=== PATIENT | male | born 1940 | race Caucasian/White ===

== ENCOUNTER → 2016-10-04 | Outpatient (REF) | payer MEDICARE, OTHER, BC ==
[2016-10-04 12:08] LABS: CALCIUM LEVEL 9.5 MG/DL (8.8-10.2); CREATININE FOR GFR 1.48 MG/DL (0.70-1.30); GLOMERULAR FILTRATION RATE 49.5 (>42); POTASSIUM SERUM 4.1 MEQ/L (3.5-5.1)
== END ==
LOC: M SFHCCLAY 08:39
PROVIDERS: ATTEND Family Medicine
DX: I10 Essential (primary) hypertension (principal)
CPT/HCPCS: 80048; G0463

== ENCOUNTER → 2017-04-20 | Outpatient (CLI) | payer MEDICARE, BC, OTHER | LOC: M CARPUL 08:16 | DX: R01.1 Cardiac murmur, unspecified (principal) | CPT/HCPCS: 93306 ==

== ENCOUNTER → 2017-06-02 | Day surgery (SDC) | payer MEDICARE, BC, OTHER ==
[~2017-06-02] MED LIST: LIDOCAINE 2% INJ 100 MG/5 ML SDV (FOR ANES.) As Ordered; PROPOFOL 200 MG/20 ML VIAL As Ordered
[2017-06-02] MEDS: NS 1,000 ML IV (08:30)
== END | disposition home or self-care (01) ==
LOC: M OPP 07:19
DX: Z12.11 Encounter for screening for malignant neoplasm of colon (principal); Z86.010 Personal history of colon polyps; D12.5 Benign neoplasm of sigmoid colon; K64.8 Other hemorrhoids; I10 Essential (primary) hypertension; E78.5 Hyperlipidemia, unspecified; R01.1 Cardiac murmur, unspecified; Z92.21 Personal history of antineoplastic chemotherapy; G47.30 Sleep apnea, unspecified; R06.83 Snoring; Z85.79 Personal history of other malignant neoplasms of lymphoid, hematopoietic and related tissues; Z88.8 Allergy status to other drugs, medicaments and biological substances; Z79.82 Long term (current) use of aspirin; Z79.899 Other long term (current) drug therapy
CPT/HCPCS: 45385

== ENCOUNTER → 2017-10-04 | Outpatient (REF) | payer MEDICARE, OTHER ==
[2017-10-04 17:16] LABS: HEMATOCRIT 40.7 % (42.0-52.0); HEMOGLOBIN 13.7 g/dl (13.5-17.5); MEAN CORPUSCULAR HGB CONC 33.7 g/dl (32.0-36.5); MEAN CORPUSCULAR VOLUME 92.1 fl (80.0-96.0); PLATELET COUNT, AUTOMATED 273 10^3/uL (150-450); RED BLOOD COUNT 4.42 10^6/uL (4.30-6.10); RED CELL DISTRIBUTION WIDTH 12.9 % (11.5-14.5); WHITE BLOOD COUNT 6.2 10^3/uL (4.0-10.0)
[2017-10-04 18:08] LABS: ALBUMIN/GLOBULIN RATIO 1.18 (1.00-1.93); ALKALINE PHOSPHATASE 61 U/L (45-117); ALT/SGPT 31 U/L (12-78); ANION GAP 9 MEQ/L (8-16); AST/SGOT 20 U/L (7-37); BILIRUBIN,TOTAL 0.4 MG/DL (0.2-1.0); BLOOD UREA NITROGEN 21 MG/DL (7-18); CALCIUM LEVEL 9.3 MG/DL (8.8-10.2); CARBON DIOXIDE LEVEL 31 MEQ/L (21-32); CHLORIDE LEVEL 98 MEQ/L (98-107); CHOLESTEROL LEVEL 167 MG/DL (<200); CHOLESTEROL RISK RATIO 2.113 (<5); CREATININE FOR GFR 1.39 MG/DL (0.70-1.30); GLUCOSE, FASTING 124 MG/DL (70-100); HDL CHOLESTEROL 79 MG/DL (>40); LDL CHOLESTEROL 75.6 MG/DL (<100); NON-HDL-C 88 MG/DL; SODIUM LEVEL 138 MEQ/L (136-145); THYROID STIMULATING HORMONE 0.958 uIU/ML (0.358-3.740); TOTAL PROTEIN 7.4 GM/DL (6.4-8.2); TRIGLYCERIDES LEVEL 62 MG/DL (<150)
== END ==
LOC: M SFHCCLAY 09:35
DX: I34.0 Nonrheumatic mitral (valve) insufficiency (principal); M19.90 Unspecified osteoarthritis, unspecified site; R73.01 Impaired fasting glucose; E78.00 Pure hypercholesterolemia, unspecified
CPT/HCPCS: 84443

== ENCOUNTER → 2018-10-12 | Outpatient (REF) | payer MEDICARE, OTHER ==
[~2018-10-12] MED LIST changes: +ASPI81TA26 PO; +CITA20TA6 PO; -LIDOCAINE 2% INJ 100 MG/5 ML SDV (FOR ANES.) As Ordered; +LOSA100T5 PO; +PRAV20TA2 PO; -PROPOFOL 200 MG/20 ML VIAL As Ordered
[2018-10-12 13:26] LABS: ALBUMIN 3.7 GM/DL (3.2-5.2); BILIRUBIN,TOTAL 0.4 MG/DL (0.2-1.0); CALCIUM LEVEL 9.2 MG/DL (8.8-10.2); CHOLESTEROL RISK RATIO 2.527 (<5); CREATININE FOR GFR 1.51 MG/DL (0.70-1.30); GLOMERULAR FILTRATION RATE 48.1 (>42); POTASSIUM SERUM 4.5 MEQ/L (3.5-5.1); TOTAL PROTEIN 7.5 GM/DL (6.4-8.2)
== END ==
LOC: M SFHCCLAY 08:13
PROVIDERS: ATTEND Family Medicine
DX: I10 Essential (primary) hypertension (principal); I70.0 Atherosclerosis of aorta
CPT/HCPCS: 80053; 80061; G0463

== ENCOUNTER → 2019-04-09 | Outpatient (REF) | payer MEDICARE, OTHER ==
[2019-04-09 12:33] LABS: ALBUMIN 3.9 GM/DL (3.2-5.2); BILIRUBIN,TOTAL 0.8 MG/DL (0.2-1.0); CALCIUM LEVEL 9.6 MG/DL (8.8-10.2); CHOLESTEROL RISK RATIO 2.648 (<5); CREATININE FOR GFR 1.48 MG/DL (0.70-1.30); GLOMERULAR FILTRATION RATE 49.2 (>42); POTASSIUM SERUM 4.9 MEQ/L (3.5-5.1); THYROID STIMULATING HORMONE 2.1 uIU/ML (0.358-3.740); TOTAL PROTEIN 7.6 GM/DL (6.4-8.2)
== END ==
LOC: M SFHCCLAY 09:05
PROVIDERS: ATTEND Family Medicine
DX: I10 Essential (primary) hypertension (principal); E78.00 Pure hypercholesterolemia, unspecified

== ENCOUNTER 2020-06-09 13:35 | Emergency (ER) | payer MEDICARE, BC, OTHER ==
[~2020-06-09] VITALS: Ht 180.3 cm; Wt 105.2 kg
--- OUTSIDE RECORDS SUMMARY | 2020-06-09 13:44 | CCD | Continuity of Care Document ---
Author Author Magdiel NELSON ANP Organization Unknown Address [address] [place] [address] Phone [phone] Care Team Providers Care Home Connect Lpn Name Role Phone Fili Vega M.D. [facility] [phone] Problems Active Problems Provider Date Obstructive sleep apnea syndrome KRISTI Boss Onset: 03/17/2020 Social History Type Date Description Comments Sex Unknown ETOH Use 3 A Day Tobacco Use Start: Unknown End: Unknown Patient is a former smoker Smoking Status Reviewed: 03/17/20 Patient is a former smoker Allergies, Adverse Reactions, Alerts Active Allergies Reaction Severity Comments Date Zoloft rash 07/09/2010 Medications Active Medications SIG Qnty Indications Ordering Provide r Date Aspir-[address] qd Unknown Losartan Potassium/Hydrochlorothiazide 100-25mg Tablets 1 a day Unknown Pravastatin Sodium 20mg Tablets take 1 tab every night at bedtime Unknown 0 Citalopram Hydrobromide 20mg Table ts daily Unknown CPAP Device +9 LCW Unknown Immunizations Description No Information Available Vital Signs Date Vital Result Comment 03/17/2020 1:25pm BP Systolic 118 mmHg BP Diastolic 80 mmHg Heart Rate 78 /min O2 % BldC Oximetry 95 % Body Temperature 97.9 F Height 70 inches 5'10" Weight 223.00 lb BMI (Body Mass Index) 32.0 kg/m2 [place] Body Weight 166 lb Weight 101.153 kg BSA (Body Surface Area) 2.19 m2 03/15/2017 10:10am BP Systolic 137 mmHg BP Diastolic 80 mmHg Height 70 inches 5'10" Weight 228.00 lb BMI (Body Mass Index) 32.7 kg/m2 [place] Body Weight 166 lb Weight 103.421 kg BSA (Body Surface Area) 2.21 m2 Results Description No Information Available Procedures Description No Information Available Medical Devices Description No Information Available Encounters Type Date Location Provider Dx Diagnosis Office Visit 03/17/2020 1:45p [facility] KRISTI Morales G47.33 Obstructive sleep apnea (adult) (pediatr ic) Assessments Date Code Description Provider 03/17/2020 G47.33 Obstructive sleep apnea (adult) (pediatric) KRISTI Boss Plan of Treatment 03/17/2020 - KRISTI Boss* G47.33 Obstructive sleep apnea (adult) (pediatric) * * Follow up:* Follow up in 12 months with compliance report for LEN-15 (can be in same 30 minute slot with ) Functional Status Description No Information Available Mental Status Description No Information Available Referrals Description No Information Available
--- OUTSIDE RECORDS SUMMARY | 2020-06-09 13:44 | CCD ---
Author Author [facility] Organization [facility] Address Unknown Phone Unavailable Care Team Providers Care Saw Feeder Name Role Phone Vega, Fili Unavailable PROBLEMS Type Condition ICD9-CM Code [id number] Code Onset Dates Condition S tatus W/U Status Risk SNOMED Code Notes Problem LEN (obstructive sleep apnea) G47.33 Active confirm ed 84006302 Problem Osteoarthritis M19.90 Active confirmed 04853 5006 Problem Nonintractable chronic migraine G43.909 Active confirmed 357515283 Problem Keratosis pilaris L85.8 Active confirmed 51 01389 Problem Elevated fasting glucose R73.01 Active confirmed 136729777 Problem Mild aortic sclerosis I70.0 Active confirmed 36977822 Problem Personal history of colonic polyps Z86.010 Activ e confirmed 189083651 Problem Erectile dysfunction, unspecified erectile dysfunction typ e N52.9 Active confirmed 818497718 Problem Essential hypertension I10 Active confirmed 55632030 Problem Hearing loss, unspecified hearing loss type, uns pecified laterality H91.90 Active confirmed 77507063 Problem Medicare annual wellness visit, subsequent Z00.00 Active confirmed 909159403 Problem Adenomatous polyp of colon, unspecified part of colon D12.6 Active confirmed 418424081 Problem Hypercholesterolemia E78.00 Active confirmed 03962531 ALLERGIES Allergen (clinical drug ingredient) Drug/Non Drug Allergy do cumented on EMR Reaction Allergy Type Onset Date Status sertraline Zoloft([facility] Code:[address]-75) Rash Drug Allergy Active ENCOUNTERS from 1942 to 2020-05-26 Encounter Location Date Provider Diagnosis [facility] [address] [place] [address] May, Fili Vega Hearing loss, unspecified hearing loss type, unspecified laterality H91.90 IMMUNIZATIONS Vaccine Route Administration Date Status Influenza (High Dose 65 & up) Unknown Mar 24, 2016 Ad ministered Influenza (High Dose 65 & up) IM Intramuscular Mar 31, 2015 A dministered Zoster 0.65mL (Zostavax) SC Subcutaneous August 10, 2012 Adminis tered TDAP 0.5mL (Boostrix) IM Intramuscular May 08, 2014 Administe red Pneumococcal 0.5mL (Prevnar 13) IM Intramuscular May 08, 2014 Administered Influenza (6mo & up) Fluzone IM Intramuscular Mar 27, 2014 Ad ministered Influenza (High Dose 65 & up) Unknown Mar 28, 2017 Ad ministered Influenza (6mo & up) Fluzone IM Intramuscular May 30, 2013 Ad ministered Influenza (Pharmacy Given) Unknown Mar 13, 2019 Admin istered Influenza (6mo & up) Fluzone IM Intramuscular Feb 16, 2012 Ad ministered Influenza (18 yrs & older) Flublok IM Intramuscular Feb 06, 2018 Administered Influenza (6mo & up) Fluzone IM Intramuscular Feb 10, 2011 Ad ministered SOCIAL HISTORY Tobacco Use: Social History Observation Description Date Details (start date - stop date) Former Smoker Sex Assigned At : Social History Observation Description Sex Assigned At Unknown Audit Question Answer Notes Total Score: 4 Interpretation: Alcohol Education Sexual Hx: Question Answer Notes Had sex in the last 12 months (vaginal, oral, or anal)? Yes Have you ever had an STD? No with Women only Use protection? No Drug and Alcohol Question Answer Notes Total Score: 0 Interpretation: No problems reported Alcohol Screening: Question Answer Notes Did you have a drink containing alcohol in the past year? Ye s Points 8 Interpretation Positive How often did you have six or more drinks on one occas ion in the past year? Weekly (3 points) How many drinks did you have on a typica l day when you were drinking in the past year? 3 or 4 (1 point) How often did you have a drink containing alcohol in t he past year? Four or more times a week (4 points) BMI Care Goal Follow-Up Question Answer Notes Above Normal BMI Follow-Up Giving encouragement to exercise Tobacco Use: Question Answer Notes Are you a: former smoker updated 10/11/2019 Additional Findings: Tobacco User none Additional Findings: Tobacco Non-User Current non-smoker How long has it been since you last smoked? > 10 years quit 1976 REASON FOR REFERRAL No Information VITAL SIGNS No information MEDICATIONS Medication SIG (Take, Route, Frequency, Duration) Notes Start Da te End Date Status Citalopram Hydrobromide 20 mg 1 tablet Orally Once a day for 90 Active Hydrochlorothiazide 12.5 MG 1 capsule in the morning Orally Once a day Sep, Active Aspirin 81 MG 1 tablet Orally Once a day Active Lac-Hydrin 12 % 1 application to affected area Externally Twice a dayprn Jun, Active Zolpidem 10 mg 1 tab(s) oral bedtime prn Jan, Active Pravachol 40 mg one half orally daily for 90 Active Viagra 100 MG 1/2 to 1 tablet Orally as directed, prn for 90 day(s) Active Imitrex 50 mg 1 tab(s) Orally as directed Dec, Active Losartan Potassium 50 MG 1 tablet Orally Once a day for 90 Active Cyproheptadine HCl 4 MG 1 tablet Orally Daily, prn for 14 days Sep, Active Hydrochlorothiazide 12.5 MG 1 capsule in the morning Orally Once a day Jul, Active PROCEDURES No Information RESULTS No Results REASON FOR VISIT No Information MEDICAL (GENERAL) HISTORY Type Description Date 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 Test 10/2014, A H index 104.4, Uses CPAP at 7 cm H2O Medical History Right inguinal hernia Medical History BCC left posterior shoulder. 2016 Surgical History Tumor removed chest wall near lung 1978 Surgical History T&A childhood Surgical History Colonoscopy with adenomatous polyps 09/10 10 Surgical History Biopsy of face on skin 08/02/12 Surgical History Bx face neg for cancer 10/05 Surgical History Hernia repair 02/15/2017 Surgical History Lesion removal back of left shoulder area Dermatology [place] (NEGATIVE RESULT) 07/2017 Surgical History Dermatology bx on nose neg path 06/2018 Goals Section No Information Health Concerns No Information MEDICAL EQUIPMENT No Information MENTAL STATUS No Information FUNCTIONAL STATUS No Information ASSESSMENTS Encounter Date Diagnosis Assessment Notes Treatment Notes Treatm ent Clinical Notes May, Hearing loss, unspecified he aring loss type, unspecified laterality (ICD-10 - H91.90) PLAN OF TREATMENT Medication Medication Name Sig Start Date Stop Date Citalopram Hydrobromide 20 mg 1 tablet Orally Once a day for 90 Losartan Potassium 50 MG 1 tablet Orally Once a day for 90 Cyproheptadine HCl 4 MG 1 tablet Orally Daily, prn for 14 days 1 9 Sep, 2019 Aspirin 81 MG 1 tablet Orally Once a day Imitrex 50 mg 1 tab(s) Orally as directed Dec, Lac-Hydrin 12 % 1 application to affected area Externall y Twice a dayprn Jun, Hydrochlorothiazide 12.5 MG 1 capsule in the morning Orally Once a day Sep, Zolpidem 10 mg 1 tab(s) oral bedtime prn Jan, Pravachol 40 mg one half orally daily for 90 Viagra 100 MG 1/2 to 1 tablet Orally as directed, prn for 90 d ay(s) Hydrochlorothiazide 12.5 MG 1 capsule in the morning Orally Once a day Jul, Next Appt Details Provider Name:Fili Vega, 2020-06-26 07 :00:00 AM, [address] [place], [address], Insurance Providers Payer Name Payer Address Payer Phone Insured Name Patient Relati onship to Insured Coverage Start Date Coverage End Date MEDICARE Part A and B [address] [facility] [id number] DEIDRE LOPES [facility] [address] [facility] [id number] DEIDRE LOPES [id number]
--- OUTSIDE RECORDS SUMMARY | 2020-06-09 13:44 | CCD ---
Author Author [facility] Organization [facility] Address Unknown Phone Unavailable Care Team Providers Care Punch Box Tender Name Role Phone Fili Vega Unavailable PROBLEMS Type Condition ICD9-CM Code [id number] Code Onset Dates Condition S tatus SNOMED Code Notes Problem LEN (obstructive sleep apnea) G47.33 Active 78 118220 Problem Osteoarthritis M19.90 Active 367298040 Problem Nonintractable chronic migraine G43.909 Active 813733369 Problem Keratosis pilaris L85.8 Active 3243782 Problem Elevated fasting glucose R73.01 Active 4690306 07 Problem Mild aortic sclerosis I70.0 Active 46955553 Problem Personal history of colonic polyps Z86.010 Activ e 770498851 Problem Erectile dysfunction, unspecified erectile dysfunction typ e N52.9 Active 016785693 Problem Essential hypertension I10 Active 51865224 Problem Hearing loss, unspecified hearing loss type, uns pecified laterality H91.90 Active 72139595 Problem Medicare annual wellness visit, subsequent Z00.00 Active 198628633 Problem Adenomatous polyp of colon, unspecified part of colon D12.6 Active 531568174 Problem Hypercholesterolemia E78.00 Active 88127059 ALLERGIES Allergen (clinical drug ingredient) Drug/Non Drug Allergy do cumented on EMR Reaction Allergy Type Onset Date Status sertraline Zoloft([facility] Code:[address]-38) Rash Drug Allergy Active ENCOUNTERS from 1942 to 2020-05-07 Encounter Location Date Provider Diagnosis [facility] [address] [place] [address] 14 Apr, 2020 Fili Vega IMMUNIZATIONS Vaccine Route Administration Date Status Influenza (Pharmacy Given) Unknown Mar 13, 2019 Admin istered Influenza (High Dose 65 & up) Unknown Mar 28, 2017 Ad ministered Influenza (High Dose 65 & up) Unknown Mar 24, 2016 Ad ministered TDAP 0.5mL (Boostrix) IM Intramuscular May 08, 2014 Administe red Pneumococcal 0.5mL (Prevnar 13) IM Intramuscular May 08, 2014 Administered Influenza (6mo & up) Fluzone IM Intramuscular Mar 27, 2014 Ad ministered Zoster 0.65mL (Zostavax) SC Subcutaneous August 10, 2012 Adminis tered Influenza (6mo & up) Fluzone IM Intramuscular May 30, 2013 Ad ministered Influenza (High Dose 65 & up) IM Intramuscular Mar 31, 2015 A dministered Influenza (6mo & up) Fluzone IM Intramuscular [...] you last smoked? > 10 years quit 1977 REASON FOR REFERRAL No Information VITAL SIGNS No information MEDICATIONS Medication SIG (Take, Route, Frequency, Duration) Notes Start Da te End Date Status Citalopram Hydrobromide 20 mg 1 tablet Orally Once a day Active Hydrochlorothiazide 12.5 MG 1 capsule in the morning Orally Once a day Sep, Active Aspirin 81 MG 1 tablet Orally Once a day Active Lac-Hydrin 12 % 1 application to affected area Externally Twice a dayprn Jun, Active Zolpidem 10 mg 1 tab(s) oral bedtime prn Jan, Active Cyproheptadine HCl 4 MG 1 tablet Orally Daily, prn for 14 days Sep, Active Viagra 100 MG 1/2 to 1 tablet Orally as directed, prn for 90 day(s) Active Pravachol 40 mg one half orally daily Active Losartan Potassium 50 MG 1 tablet Orally Once a day for 90 Active Imitrex 50 mg 1 tab(s) Orally as directed Dec, Active Hydrochlorothiazide 12.5 MG 1 capsule in the morning Orally Once a day Jul, Active PROCEDURES No Information RESULTS No Results REASON FOR VISIT question MEDICAL (GENERAL) HISTORY Type Description Date Medical [...] removal back of left shoulder area [facility] [place] (NEGATIVE RESULT) 07/2017 Surgical History Dermatology bx on nose neg path 06/2018 Goals Section No Information Health Concerns No Information MEDICAL EQUIPMENT No Information MENTAL STATUS No Information FUNCTIONAL STATUS No Information ASSESSMENTS No Information PLAN OF TREATMENT Medication Medication Name Sig Start Date Stop Date Citalopram Hydrobromide 20 mg 1 tablet Orally Once a day Losartan Potassium 50 MG 1 tablet Orally Once a day for 90 Imitrex 50 mg 1 tab(s) Orally as directed Dec, Aspirin 81 MG 1 tablet Orally Once a day Pravachol 40 mg one half orally daily Lac-Hydrin 12 % 1 application to affected area Externall y Twice a dayprn Jun, Hydrochlorothiazide 12.5 MG 1 capsule in the morning Orally Once a day Sep, Zolpidem 10 mg 1 tab(s) oral bedtime prn Jan, Cyproheptadine HCl 4 MG 1 tablet Orally Daily, prn for 14 days 1 Sep, Viagra 100 MG 1/2 to 1 tablet Orally as directed, prn for 90 d ay(s) Hydrochlorothiazide 12.5 MG 1 capsule in the morning Orally Once a day Jul, Insurance Providers Payer Name Payer Address Payer Phone Insured Name Patient Relati onship to Insured Coverage Start Date Coverage End Date [facility] [address] [facility] [id number] DEIDRE LOPES [id number] MEDICARE Part A and B [address] [facility] [address] [phone] DEIDRE LOPES self
--- OUTSIDE RECORDS SUMMARY | 2020-06-09 13:44 | CCD ---
Author Author [facility] Organization [facility] Address Unknown Phone Unavailable Care Team Providers Care Blood Collector Name Role Phone Fili Vega Unavailable PROBLEMS Type Condition ICD9-CM Code [id number] Code Onset Dates Condition S tatus SNOMED Code Notes Problem LEN (obstructive sleep apnea) G47.33 Active 78 749499 Problem Osteoarthritis M19.90 Active 153930932 Problem Nonintractable chronic migraine G43.909 Active 975517355 Problem Keratosis pilaris L85.8 Active 3806126 Problem Elevated fasting glucose R73.01 Active 1577326 07 Problem Mild aortic sclerosis I70.0 Active 82777572 Problem Personal history of colonic polyps Z86.010 Activ e 346810025 Problem Erectile dysfunction, unspecified erectile dysfunction typ e N52.9 Active 362903784 Problem Essential hypertension I10 Active 03722220 Problem Hearing loss, unspecified hearing loss type, uns pecified laterality H91.90 Active 76948742 Problem Medicare annual wellness visit, subsequent Z00.00 Active 575996040 Problem Adenomatous polyp of colon, unspecified part of colon D12.6 Active 437142597 Problem Hypercholesterolemia E78.00 Active 31765286 ALLERGIES Allergen (clinical drug ingredient) Drug/Non Drug Allergy do cumented on EMR Reaction Allergy Type Onset Date Status sertraline Zoloft([facility] Code:[address]-16) Rash Drug Allergy Active ENCOUNTERS from 1942 to 2020-05-07 Encounter Location Date Provider Diagnosis [facility] [address] [place] [address] 14 Apr, 2020 Fili Vega IMMUNIZATIONS Vaccine [...] removal back of left shoulder area [facility] [place] (NEGATIVE RESULT) 07/2017 Surgical History Dermatology bx [...] Insured Coverage Start Date Coverage End Date [facility] [address] [facility] [id number] DEIDRE LOPES [id number] MEDICARE Part A and B [address] [facility] [phone] DEIDRE LOPES self
--- OUTSIDE RECORDS SUMMARY | 2020-06-09 13:45 | CCD ---
Author Author [facility] Organization 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 Name Role Phone Ike, L Kate VARNISH FINISHER Unavailable Unavailable Ike, L Kate VARNISH FINISHER Unavailable Unavailable Ike, L Kate VARNISH FINISHER Unavailable Unavailable Ike, L Kate VARNISH FINISHER Unavailable Unavailable Ike, L Kate VARNISH FINISHER Unavailable Unavailable Ike, L Kate VARNISH FINISHER Unavailable Unavailable Ike, L Kate VARNISH FINISHER Unavailable Unavailable Ike, L Kate VARNISH FINISHER Unavailable Unavailable Ike, L Kate VARNISH FINISHER Unavailable Unavailable Ike, L Kate VARNISH FINISHER Unavailable Unavailable Ike, L Kate VARNISH FINISHER Unavailable Unavailable Ike, L Kate VARNISH FINISHER Unavailable Unavailable Ike, L Kate VARNISH FINISHER Unavailable Unavailable Ike, L Kate VARNISH FINISHER Unavailable Unavailable Ike, L Kate VARNISH FINISHER Unavailable Unavailable Ike, L Kate VARNISH FINISHER Unavailable Unavailable Ike, L Kate VARNISH FINISHER Unavailable Unavailable Ike, L Kate VARNISH FINISHER Unavailable Unavailable Ike, L Kate VARNISH FINISHER Unavailable Unavailable Ike, L Kate VARNISH FINISHER Unavailable Unavailable Ike, L Kate VARNISH FINISHER Unavailable Unavailable Ike, L Kate VARNISH FINISHER Unavailable Unavailable Re-disclosure Warning The records that you are about to access may contain information from federally-assisted alcohol or drug abuse programs. If such information is present, then the following federally mandated warning applies: This information has been disclosed to you from records protected by federal confidentiality rules (42 CFR part 2). The federal rules prohibit you from making any further disclosure of this information unless further disclosure is expressly permitted by the written consent of the person to whom it pertains or as otherwise permitted by 42 CFR part 2. A general authorization for the release of medical or other information is NOT sufficient for this purpose. The Federal rules restrict any use of the information to criminally investigate or prosecute any alcohol or drug abuse patient.The records that you are about to access may contain highly sensitive health information, the redisclosure of which is protected by Article 27-F of the [facility] Public Health law. If you continue you may have access to information: Regarding HIV / AIDS; Provided by facilities licensed or operated by the [facility] Office of Mental Health; or Provided by the [facility] Office for People With Developmental Disabilities. If such information is present, then the following [facility] mandated warning applies: This information has been disclosed to you from confidential records which are protected by state law. State law prohibits you from making any further disclosure of this information without the specific written consent of the person to whom it pertains, or as otherwise permitted by law. Any unauthorized further disclosure in violation of state law may result in a fine or halfway sentence or both. A general authorization for the release of medical or other information is NOT sufficient authorization for further disc losure. Family History Family Member Name Family Member Gender Family Member Status Date o f Status Description Data Source(s) Unknown Unknown Problem [facility] Unknown Male Problem [facility] ([facility] () Encounters Encounter Providers Location Date Indications Data Source(s ) Unknown [address] [facility] [place] [address] 05/25/2020 12:00:00 AM EST eCW1 ([facility]) Unknown [address] [facility] [place] [address] 05/07/2020 12:00:00 AM EST eCW1 ([facility]) Unknown [address] [facility] [place] [address] 05/07/2020 12:00:00 AM EST eCW1 ([facility]) Outpatient Attender: Kate Kaur/Molly/Ron/Garfield 03/17/2020 12:45:00 PM EST [facility] ([facility]) Unknown [address] [facility] [place] [address] 10/14/2019 12:00:00 AM EDT eCW1 ([facility]) [facility] [address] [facility] [address] [place] [address] 10/11/2019 12:00:00 AM EDT eCW1 ([facility]) [facility] [address] [facility] [place] [address] 08/12/2019 12:00:00 AM EDT eCW1 ([facility]) [facility] [address] [facility] [place] [address] 05/28/2019 12:00:00 AM EST eCW1 ([facility]) [facility] [address] [facility] [place] [address] 05/27/2019 12:00:00 AM EST eCW1 ([facility]) Medications Medication Brand Name Start Date Product Form Dose Route Admi nistrative Instructions Pharmacy Instructions Status Indications Reaction Description Data Source(s) 40 mg 05/15/2020 12:00:00 AM EST tablet 45 TAKE ONE-HALF TABLET BY MOUTH EVERY DAY TAKE ONE-HALF TABLET BY MOUTH EVERY DAY SOLD: 05/16/2020 [facility] Citalopram 20 MG Oral Tablet CITALOPRAM HYDROBROMIDE 05/11/2020 12:00:00 AM EST tablet 90 TAKE ONE TABLET BY MOUTH EVERY D AY TAKE ONE TABLET BY MOUTH EVERY DAY SOLD: 05/12/2020 [facility] 12.5 mg 04/27/2020 12:00:00 AM EST capsule 90 TAKE ONE CAPSULE BY MOUTH EVERY DAY IN THE MORNING TAKE ONE CAPSULE BY MOUTH EVERY DAY IN THE MORNING SOLD: 04/29/2020 [facility] 50 mg 02/22/2020 12:00:00 AM EDT tablet 90 TAKE ONE TABLET BY MOUTH EVERY DAY TAKE ONE TABLET BY MOUTH EVERY DAY SOLD: 05/16/2020 [facility] 50 mg 02/22/2020 12:00:00 AM EDT tablet 90 TAKE ONE TABLET BY MOUTH EVERY DAY TAKE ONE TABLET BY MOUTH EVERY DAY SOLD: 02/24/2020 [facility] Cyproheptadine hydrochloride 4 MG Oral Tablet CYPROHEPTADINE HCL 10/14/2019 12:00:00 AM EDT tablet 14 TAKE ONE TABLET BY MOUTH EVERY DAY NEEDED FOR 14 DAYS TAKE ONE TABLET BY MOUTH EVERY DAY NEEDED FOR 14 DAYS ERNA [facility] 100 mg 10/13/2019 12:00:00 AM EDT tablet 12 TAKE 1/2-1 TABLET BY MOUTH NEEDED DIRECTED TAKE 1/2-1 TABLET BY MOUTH NEEDED DIRECTED SOLD: 04/23/2020 [facility] 100 mg 10/13/2019 12:00:00 AM EDT tablet 12 TAKE 1/2-1 TABLET BY MOUTH NEEDED DIRECTED TAKE 1/2-1 TABLET BY MOUTH NEEDED DIRECTED SOLD: 10/14/2019 [facility] Cyproheptadine hydrochloride 4 MG Oral Tablet Cyprohep tadine HCl 4 MG Cyproheptadine HCl 4 MG 10/11/2019 12:00:00 AM EDT 1.0 {tablet} active Cyproheptadine HCl 4 MG eCW1 ([facility]) Cyproheptadine hydrochloride 4 MG Oral Tablet Cyprohep tadine HCl 4 MG Cyproheptadine HCl 4 MG 10/11/2019 12:00:00 AM EDT 1.0 {tablet} active Cyproheptadine HCl 4 MG eCW1 ([facility]) Cyproheptadine hydrochloride 4 MG Oral Tablet Cyprohep tadine HCl 4 MG Cyproheptadine HCl 4 MG 10/11/2019 12:00:00 AM EDT 1.0 {tablet} active Cyproheptadine HCl 4 MG eCW1 ([facility]) Cyproheptadine hydrochloride 4 MG Oral Tablet Cyprohep tadine HCl 4 MG Cyproheptadine HCl 4 MG 10/11/2019 12:00:00 AM EDT 1.0 {tablet} active Cyproheptadine HCl 4 MG eCW1 ([facility]) Cyproheptadine hydrochloride 4 MG Oral Tablet Cyprohep tadine HCl 4 MG Cyproheptadine HCl 4 MG 10/11/2019 12:00:00 AM EDT 1.0 {tablet} active Cyproheptadine HCl 4 MG eCW1 ([facility]) Hydrochlorothiazide 12.5 MG Oral Capsule Hydrochlorothiazide 12.5 MG 08/12/2019 12:00:00 AM EDT 1.0 {capsule_in_the_morning} act mahnaz Hydrochlorothiazide 12.5 MG eCW1 ([facility]) Hydrochlorothiazide 12.5 MG Oral Capsule Hydrochlorothiazide 12.5 MG 08/12/2019 12:00:00 AM EDT 1.0 {capsule_in_the_morning} act mahnaz Hydrochlorothiazide 12.5 MG eCW1 ([facility]) Losartan Potassium 50 MG Oral Tablet Losartan Potassium 50 M G 08/12/2019 12:00:00 AM EDT 1.0 {tablet} active Lo sartan Potassium 50 MG eCW1 ([facility]) 50 mg 08/12/2019 12:00:00 AM EDT tablet 90 TAKE ONE TABLET BY MOUTH EVERY DAY TAKE ONE TABLET BY MOUTH EVERY DAY SOLD: 11/27/2019 [facility] Hydrochlorothiazide 12.5 MG Oral Capsule Hydrochlorothiazide 12.5 MG 08/12/2019 12:00:00 AM EDT 1.0 {capsule_in_the_morning} act mahnaz Hydrochlorothiazide 12.5 MG eCW1 ([facility]) Hydrochlorothiazide 12.5 MG Oral Capsule Hydrochlorothiazide 12.5 MG 08/12/2019 12:00:00 AM EDT 1.0 {capsule_in_the_morning} act mahnaz Hydrochlorothiazide 12.5 MG eCW1 ([facility]) 50 mg 08/12/2019 12:00:00 AM EDT tablet 90 TAKE ONE TABLET BY MOUTH EVERY DAY TAKE ONE TABLET BY MOUTH EVERY DAY SOLD: 08/14/2019 [facility] Hydrochlorothiazide 12.5 MG Oral Capsule Hydrochlorothiazide 12.5 MG 08/12/2019 12:00:00 AM EDT 1.0 {capsule_in_the_morning} act mahnaz Hydrochlorothiazide 12.5 MG eCW1 ([facility]) Losartan Potassium 50 MG Oral Tablet Losartan Potassium 50 M G 08/12/2019 12:00:00 AM EDT 1.0 {tablet} active Lo sartan Potassium 50 MG eCW1 ([facility]) Losartan Potassium 50 MG Oral Tablet Losartan Potassium 50 M G 08/12/2019 12:00:00 AM EDT active 1 tablet eCW1 ([facility]) Hydrochlorothiazide 12.5 MG Oral Capsule Hydrochlorothiazide 12.5 MG 08/12/2019 12:00:00 AM EDT active 1 capsul e in the morning eCW1 ([facility]) 20 mg 07/10/2019 12:00:00 AM EDT tablet 90 TAKE ONE TABLET BY MOUTH EVERY DAY TAKE ONE TABLET BY MOUTH EVERY DAY SOLD: 02/13/2020 [facility] 20 mg 07/10/2019 12:00:00 AM EDT tablet 90 TAKE ONE TABLET BY MOUTH EVERY DAY TAKE ONE TABLET BY MOUTH EVERY DAY SOLD: 10/14/2019 [facility] 20 mg 07/10/2019 12:00:00 AM EDT tablet 90 TAKE ONE TABLET BY MOUTH EVERY DAY TAKE ONE TABLET BY MOUTH EVERY DAY SOLD: 07/12/2019 [facility] 40 mg 05/29/2019 12:00:00 AM EST tablet 45 TAKE ONE-HALF TABLET BY MOUTH EVERY DAY TAKE ONE-HALF TABLET BY MOUTH EVERY DAY SOLD: 11/29/2019 [facility] 40 mg 05/29/2019 12:00:00 AM EST tablet 45 TAKE ONE-HALF TABLET BY MOUTH EVERY DAY TAKE ONE-HALF TABLET BY MOUTH EVERY DAY SOLD: 09/01/2019 [facility] 40 mg 05/29/2019 12:00:00 AM EST tablet 45 TAKE ONE-HALF TABLET BY MOUTH EVERY DAY TAKE ONE-HALF TABLET BY MOUTH EVERY DAY SOLD: 02/13/2020 [facility] 40 mg 05/29/2019 12:00:00 AM EST tablet 45 TAKE ONE-HALF TABLET BY MOUTH EVERY DAY TAKE ONE-HALF TABLET BY MOUTH EVERY DAY SOLD: 05/31/2019 [facility] 12.5 mg 04/09/2019 12:00:00 AM EST capsule 90 TAKE ONE CAPSULE BY MOUTH EVERY MORNING TAKE ONE CAPSULE BY MOUTH EVERY MORNING SOLD: 04/15/2019 [facility] 12.5 mg 04/09/2019 12:00:00 AM EST capsule 90 TAKE ONE CAPSULE BY MOUTH EVERY MORNING TAKE ONE CAPSULE BY MOUTH EVERY MORNING SOLD: 12/10/2019 [facility] 50-12.5 mg 04/09/2019 12:00:00 AM EST tablet 90 TAKE ONE TABLET BY MOUTH EVERY DAY TAKE ONE TABLET BY MOUTH EVERY DAY SOLD: 04/15/2019 [facility] 12.5 mg 04/09/2019 12:00:00 AM EST capsule 90 TAKE ONE CAPSULE BY MOUTH EVERY MORNING TAKE ONE CAPSULE BY MOUTH EVERY MORNING SOLD: 08/08/2019 [facility] 100 mg 10/12/2018 12:00:00 AM EDT tablet 10 TAKE 1/2 TO 1 TABLET BY MOUTH DIRECTED, NEEDED TAKE 1/2 TO 1 TABLET BY MOUTH DIRECTED, NEEDED S OLD: 06/27/2019 [facility] 20 mg 06/23/2018 12:00:00 AM EST tablet 90 TAKE ONE TABLET BY MOUTH EVERY DAY TAKE ONE TABLET BY MOUTH EVERY DAY SOLD: 04/15/2019 [facility] Insurance Providers Payer name Policy type / Coverage type Policy ID Covered libertarian ID Covered libertarian's relationship to prieto Policy Prieto Plan Information MEDICARE [id number] SP [id number] [facility] [id number] [id number] BCBS E[place]IRE [place] DIV UNAVAILABLE UNAVAILABLE ANSI-Commercial [id number] ANSI-Medicare Part B [id number] ANSI-Commercial [id number] ANSI-Medicare Part B [id number] ANSI-Commercial [id number] ANSI-Medicare Part B [id number] [place] [id number] S [id number] BCBS EMPIR [id number] S [id number] [facility] [id number] S [id number] [facility] [id number] S [id number] MEDICARE [id number] S [id number] A Medicare - [place] Medicare Primary [id number] Self [id number] [place] Plan Medigap Part B [id number] Family Dependent [id number] Medicare - [place] Medicare Primary [id number] Self [id number] ANSI-Commercial [id number] ANSI-Medicare Part B [id number] MEDICARE [id number] SP [id number] A UNITED HEALTHCARE [id number] [place]2 89 [id number] BCBS EMPIRE [place] DIV [id number] [place]2 [id number] MEDICARE [id number] SP [id number] A UNITED HEALTHCARE [id number] [place]2 89 [id number] BCBS E[place]IRE [place] DIV [id number] [place] [id number] [id number] S [id number] A [facility] [place] [facility] Maintenance Organization (HMO) [id number] Family Dependent [id number] Medicare - [place] Medicare Primary [id number] Self [id number] [place] Plan Medigap Part B [id number] Family Dependent [id number] Medicare - [place] Medicare Primary [id number] Self [id number] MEDICARE - [place] MCR [id number] S [id number] UNITED HEALTHCARE [id number] WI2 89 [id number] UNITED HEALTHCARE COMM [id number] S [id number] BCBS EMPIRE CHANTEL DIV [id number] WI2 [id number] BCBS EMPIRE CHANTEL DIV [id number] WI2 [id number] MEDICARE [id number] SP [id number] A [facility] [id number] S [id number] MEDICARE S [id number] S [id number] A UNITED HE[employer]CARE P [id number] S [id number] Problems, Conditions, and Diagnoses Code Display Name Description Problem Type Effective Dates Data Source(s) 98136695 Obstructive sleep apnea syndrome Obstructive sle ep apnea syndrome Problem 03/17/2020 12:00:00 AM EST [facility] ([facility] michelle ) Results ID Date Data Source [id number] 04/21/2020 12:00:00 AM EST [facility] Name Value Range Interpretation Code Description Data Nara rce(s) Supporting Document(s) SARS coronavirus 2 RNA [facility] This lab was ordered by [employer] and rep orted by [facility]. Procedure Social History Code Duration Value Status Description Data Source(s ) Smoking 03/17/2020 12:00:00 AM EST Patient is a former smoker completed Patient is a former smoker [facility] ([facility]) Smoking 10/11/2019 12:00:00 AM EDT Former Smoker completed Former Smoker eCW1 ([facility]) Smoking 10/11/2019 12:00:00 AM EDT Former Smoker completed Former Smoker eCW1 ([facility]) Smoking 10/11/2019 12:00:00 AM EDT Former Smoker completed Former Smoker eCW1 ([facility]) Smoking 10/11/2019 12:00:00 AM EDT Former Smoker completed Former Smoker eCW1 ([facility]) Vital Signs ID Date Data Source UNK Name Value Range Interpretation Code Description Data Source(s) Body surface area Derived from formula 2.19 m2 2.19 m2 [facility] ([facility]) Body weight 101.153 kg 101.153 kg [facility] ([facility]) [place] body weight 166 [lb_av] 166 [facility]_av[facility] Body mass index (BMI) [Ratio] 32.0 kg/m2 32.0 k g/m2 [facility] ([facility]) Body weight 223.00 [lb_av] 223.00 [facility]_av] [facility] Body height 70 [in_i] 70 [in_i] [facility] ([facility]) 5'10" Body temperature 97.9 [degF] 97.9 [degF] [facility] ([facility]) Oxygen saturation in Arterial blood by Pulse oximetry 95 % 95 % [facility] ([facility], ) Heart rate 78 /min 78 /min [facility] ([facility], ) Diastolic blood pressure 80 mm[Hg] 80 mm[Hg] [facility] ([facility], ) Systolic blood pressure 118 mm[Hg] 118 mm[Hg] M [facility] ([facility], ) Diastolic blood pressure 86 mm[Hg] 86 mm[Hg] eCW1 ([facility]) Systolic blood pressure 125 mm[Hg] 125 mm[Hg] e CW1 ([facility]) Body temperature 98.6 [degF] 98.6 [degF] eCW1 ( [facility]) Respiratory rate 18 /min 18 /min eCW1 ([facility]) Heart rate 78 /min 78 /min eCW1 ([facility] Body mass index (BMI) [Ratio] 30.68 kg/m2 30.68 kg/m2 eCW1 ([facility]) Body height 71 [in_i] 71 [in_i] eCW1 ([facility]) Body weight 220 [lb_av] 220 [lb_av] eCW1 ([facility] Patient Treatment Plan of Care Planned Activity Planned Date Details Description Data Source (s) Cyproheptadine hydrochloride 4 MG Oral Tablet 10/11/2019 12:00:00 A M EDT eCW1 ([facility]) Cyproheptadine hydrochloride 4 MG Oral Tablet 10/11/2019 12:00:00 A M EDT eCW1 ([facility]) Cyproheptadine hydrochloride 4 MG Oral Tablet 10/11/2019 12:00:00 A M EDT eCW1 ([facility]) Cyproheptadine hydrochloride 4 MG Oral Tablet 10/11/2019 12:00:00 A M EDT eCW1 ([facility]) Cyproheptadine hydrochloride 4 MG Oral Tablet 10/11/2019 12:00:00 A M EDT eCW1 ([facility]) Hydrochlorothiazide 12.5 MG Oral Capsule 08/12/2019 12:00:00 AM EDT eCW1 ([facility]) Hydrochlorothiazide 12.5 MG Oral Capsule 08/12/2019 12:00:00 AM EDT eCW1 ([facility]) Hydrochlorothiazide 12.5 MG Oral Capsule 08/12/2019 12:00:00 AM EDT eCW1 ([facility]) Losartan Potassium 50 MG Oral Tablet 08/12/2019 12:00:00 AM EDT eCW1 ([facility]) Hydrochlorothiazide 12.5 MG Oral Capsule 08/12/2019 12:00:00 AM EDT eCW1 ([facility]) Losartan Potassium 50 MG Oral Tablet 08/12/2019 12:00:00 AM EDT eCW1 ([facility]) Hydrochlorothiazide 12.5 MG Oral Capsule 08/12/2019 12:00:00 AM EDT eCW1 ([facility]) Losartan Potassium 50 MG Oral Tablet 08/12/2019 12:00:00 AM EDT eCW1 ([facility]) Hydrochlorothiazide 12.5 MG Oral Capsule 08/12/2019 12:00:00 AM EDT eCW1 ([facility])
[2020-06-09] MEDS ORDERED: HYDR12CA (13:55)
[2020-06-09] MEDS ORDERED: LOSA50TA88 (13:55)
[2020-06-09 15:02] LABS: VENOUS BASE EXCESS 4.6 (-2.0-2.0); VENOUS HCO3 31.9 MEQ/L (23.0-27.0); VENOUS O2 SATURATION 54.9 % (60.0-80.0); VENOUS PARTIAL PRESSURE O2 28.6 mmHg (30.0-50.0); VENOUS PH 7.366 UNITS (7.330-7.430); VENOUS STANDARD HCO3 27.3 MEQ/L; VENOUS TOTAL CO2 33.7 MEQ/L (24.0-28.0)
[2020-06-09 15:06] LABS: BASO # 0.1 10^3/uL (0.0-0.2); BASO % 0.5 % (0.0-1.0); EOS # 0.1 10^3/uL (0.0-0.5); EOS % 0.7 % (0.0-3.0); HEMATOCRIT 48.5 % (42.0-52.0); HEMOGLOBIN 15.9 g/dl (13.5-17.5); LYMPH # 2.3 10^3/uL (1.5-5.0); LYMPH % 22.3 % (24.0-44.0); MEAN CORPUSCULAR HEMOGLOBIN 30.5 pg (27.0-33.0); MEAN CORPUSCULAR HGB CONC 32.8 g/dl (32.0-36.5); MEAN CORPUSCULAR VOLUME 92.9 fl (80.0-96.0); MONO # 0.8 10^3/uL (0.0-0.8); MONO % 7.4 % (2.0-8.0); NEUTROPHILS # 7.1 10^3/uL (1.5-8.5); NEUTROPHILS % 68.6 % (36.0-66.0); PLATELET COUNT, AUTOMATED 220 10^3/uL (150-450); RED BLOOD COUNT 5.22 10^6/uL (4.30-6.10); WHITE BLOOD COUNT 10.4 10^3/uL (4.0-10.0)
--- OUTSIDE RECORDS SUMMARY | 2020-06-09 15:13 | CCD ---
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 Name Role Phone Ike, L Kate PENSIONHOLDER INFORMATION CLERK Unavailable Unavailable Ike, L Kate PENSIONHOLDER INFORMATION CLERK Unavailable Unavailable Ike, L Kate PENSIONHOLDER INFORMATION CLERK Unavailable Unavailable Ike, L Kate PENSIONHOLDER INFORMATION CLERK Unavailable Unavailable Ike, L Kate PENSIONHOLDER INFORMATION CLERK Unavailable Unavailable Ike, L Kate PENSIONHOLDER INFORMATION CLERK Unavailable Unavailable Ike, L Kate PENSIONHOLDER INFORMATION CLERK Unavailable Unavailable Ike, L Kate PENSIONHOLDER INFORMATION CLERK Unavailable Unavailable Ike, L Kate PENSIONHOLDER INFORMATION CLERK Unavailable Unavailable Ike, L Kate PENSIONHOLDER INFORMATION CLERK Unavailable Unavailable Ike, L Kate PENSIONHOLDER INFORMATION CLERK Unavailable Unavailable Ike, L Kate PENSIONHOLDER INFORMATION CLERK Unavailable Unavailable Ike, L Kate PENSIONHOLDER INFORMATION CLERK Unavailable Unavailable Ike, L Kate PENSIONHOLDER INFORMATION CLERK Unavailable Unavailable Ike, L Kate PENSIONHOLDER INFORMATION CLERK Unavailable Unavailable Ike, L Kate PENSIONHOLDER INFORMATION CLERK Unavailable Unavailable Ike, L Kate PENSIONHOLDER INFORMATION CLERK Unavailable Unavailable Ike, L Kate PENSIONHOLDER INFORMATION CLERK Unavailable Unavailable Ike, L Kate PENSIONHOLDER INFORMATION CLERK Unavailable Unavailable Ike, L Kate PENSIONHOLDER INFORMATION CLERK Unavailable Unavailable Ike, L Kate PENSIONHOLDER INFORMATION CLERK Unavailable Unavailable Ike, L Kate PENSIONHOLDER INFORMATION CLERK Unavailable Unavailable Re-disclosure Warning The records that [...] is protected by Article 27-F of the [facility] Public Health law. If you continue you may have access to information: Regarding HIV / AIDS; Provided by facilities licensed or operated by the [facility] Office of Mental Health; or Provided by the [facility] Office for People With Developmental Disabilities. If such information is present, then the following [facility] mandated warning applies: This information has [...] law may result in a fine or skilled nursing sentence or both. A general authorization for the release of medical or other information is NOT sufficient authorization for further disc losure. Family History Family Member Name Family Member Gender Family Member Status Date o f Status Description Data Source(s) Unknown Unknown Problem [facility] Unknown Male Problem [facility] ([facility] () Encounters Encounter Providers Location Date Indications Data Source(s ) Unknown [address] [facility] [place] [address] 05/25/2020 12:00:00 AM EST eCW1 ([facility]) Unknown [address] [facility] [place] [address] 05/07/2020 12:00:00 AM EST eCW1 ([facility]) Unknown [address] [facility] [place] [address] 05/07/2020 12:00:00 AM EST eCW1 ([facility]) Outpatient Attender: Kate Kaur/Molly/Ron/Garfield 03/17/2020 12:45:00 PM EST MEDENT ([facility]) Unknown [address] [facility] [place] [address] 10/14/2019 12:00:00 AM EDT eCW1 ([facility]) [facility] [address] [facility] [address] [place] [address] 10/11/2019 12:00:00 AM EDT eCW1 ([facility]) [facility] [address] [facility] [place] [address] 08/12/2019 12:00:00 AM EDT eCW1 ([facility]) [facility] [address] [facility] [place] [address] 05/28/2019 12:00:00 AM EST eCW1 ([facility]) [facility] [address] [facility] [place] [address] 05/27/2019 12:00:00 AM EST eCW1 ([facility]) Medications Medication Brand Name Start Date Product [...] {tablet} active Cyproheptadine HCl 4 MG eCW1 ([facility]) Cyproheptadine hydrochloride 4 MG Oral Tablet Cyprohep tadine HCl 4 MG Cyproheptadine HCl 4 MG 10/11/2019 12:00:00 AM EDT 1.0 {tablet} active Cyproheptadine HCl 4 MG eCW1 ([facility]) Cyproheptadine hydrochloride 4 MG Oral Tablet Cyprohep tadine HCl 4 MG Cyproheptadine HCl 4 MG 10/11/2019 12:00:00 AM EDT 1.0 {tablet} active Cyproheptadine HCl 4 MG eCW1 ([facility]) Cyproheptadine hydrochloride 4 MG Oral Tablet Cyprohep tadine HCl 4 MG Cyproheptadine HCl 4 MG 10/11/2019 12:00:00 AM EDT 1.0 {tablet} active Cyproheptadine HCl 4 MG eCW1 ([facility]) Cyproheptadine hydrochloride 4 MG Oral Tablet Cyprohep tadine HCl 4 MG Cyproheptadine HCl 4 MG 10/11/2019 12:00:00 AM EDT 1.0 {tablet} active Cyproheptadine HCl 4 MG eCW1 ([facility]) Hydrochlorothiazide 12.5 MG Oral Capsule Hydrochlorothiazide 12.5 MG 08/12/2019 12:00:00 AM EDT 1.0 {capsule_in_the_morning} act mahnaz Hydrochlorothiazide 12.5 MG eCW1 ([facility]) Hydrochlorothiazide 12.5 MG Oral Capsule Hydrochlorothiazide 12.5 MG 08/12/2019 12:00:00 AM EDT 1.0 {capsule_in_the_morning} act mahnaz Hydrochlorothiazide 12.5 MG eCW1 ([facility]) Losartan Potassium 50 MG Oral Tablet Losartan Potassium 50 M G 08/12/2019 12:00:00 AM EDT 1.0 {tablet} active Lo sartan Potassium 50 MG eCW1 ([facility]) 50 mg 08/12/2019 12:00:00 AM EDT tablet 90 TAKE ONE TABLET BY MOUTH EVERY DAY TAKE ONE TABLET BY MOUTH EVERY DAY SOLD: 11/27/2019 [facility] Hydrochlorothiazide 12.5 MG Oral Capsule Hydrochlorothiazide 12.5 MG 08/12/2019 12:00:00 AM EDT 1.0 {capsule_in_the_morning} act mahnaz Hydrochlorothiazide 12.5 MG eCW1 ([facility]) Hydrochlorothiazide 12.5 MG Oral Capsule Hydrochlorothiazide 12.5 MG 08/12/2019 12:00:00 AM EDT 1.0 {capsule_in_the_morning} act mahnaz Hydrochlorothiazide 12.5 MG eCW1 ([facility]) 50 mg 08/12/2019 12:00:00 AM EDT tablet 90 TAKE ONE TABLET BY MOUTH EVERY DAY TAKE ONE TABLET BY MOUTH EVERY DAY SOLD: 08/14/2019 [facility] Hydrochlorothiazide 12.5 MG Oral Capsule Hydrochlorothiazide 12.5 MG 08/12/2019 12:00:00 AM EDT 1.0 {capsule_in_the_morning} act mahnaz Hydrochlorothiazide 12.5 MG eCW1 ([facility]) Losartan Potassium 50 MG Oral Tablet Losartan Potassium 50 M G 08/12/2019 12:00:00 AM EDT 1.0 {tablet} active Lo sartan Potassium 50 MG eCW1 ([facility]) Losartan Potassium 50 MG Oral Tablet Losartan Potassium 50 M G 08/12/2019 12:00:00 AM EDT active 1 tablet eCW1 ([facility]) Hydrochlorothiazide 12.5 MG Oral Capsule Hydrochlorothiazide 12.5 MG 08/12/2019 12:00:00 AM EDT active 1 capsul e in the morning eCW1 ([facility]) 20 mg 07/10/2019 12:00:00 AM [...] type / Coverage type Policy ID Covered green party ID Covered green party's relationship to prieto Policy Prieto Plan Information [facility] [id number] SP [id number] MEDICARE [id number] SP [id number] [id number] WI2 [id number] [facility] [id number] WI2 89 [id number] [facility] DIV UNAVAILABLE UNAVAILABLE ANSI-Commercial [id number] ANSI-Medicare Part B [id number] ANSI-Commercial [id number] ANSI-Medicare Part B [id number] ANSI-Commercial [id number] ANSI-Medicare Part B [id number] MEDICARE - [place] [id number] S [id number] BCBS EMPIRE [id number] S [id number] UNITED HEALTHCARE [id number] S [id number] BLUE CROSS [id number] S [id number] MEDICARE [id number] S [id number] A Medicare - [place] Medicare Primary [id number] Self [id number] [place] Plan Medigap Part B [id number] Family Dependent [id number] Medicare - [place] Medicare Primary [id number] Self [id number] ANSI-Commercial [id number] ANSI-Medicare Part [id number] MEDICARE [id number] SP [id number] A UNITED HEALTHCARE [id number] WI2 89 [id number] BCBS EMPIRE [place] DIV [id number] WI2 [id number] MEDICARE [id number] SP [id number] A [facility] [id number] WI2 89 [id number] BCBS EMPIRE [place] DIV [id number] WI2 [id number] MCRB [id number] S [id number] A [facility] [place] Health Maintenance Organization (HMO) [id number] Family Dependent [id number] Medicare - [place] Medicare Primary [id number] Self [id number] [place] Plan Medigap Part B [id number] Family Dependent [id number] Medicare - [place] Medicare Primary [id number] Self [id number] MEDICARE - [place] MCR [id number] S [id number] UNITED HEALTHCARE COMM [id number] S [id number] BCBS EMPIRE [place] DIV [id number] WI2 [id number] BCBS EMPIRE [place] DIV [id number] WI2 [id number] MEDICARE [id number] SP [id number] A UNITED HEALTHCARE [id number] S [id number] MEDICARE S [id number] S [id number] A UNITED HEALTHCARE P [id number] Problems, Conditions, and Diagnoses Code Display Name Description Problem Type Effective Dates Data Source(s) 32982351 Obstructive sleep apnea syndrome Obstructive sle ep apnea syndrome Problem 03/17/2020 12:00:00 AM EST [facility] ([facility]helle ) Results ID Date Data Source [id number] 04/21/2020 12:00:00 AM EST [facility] Name Value Range Interpretation Code Description Data Nara rce(s) Supporting Document(s) SARS coronavirus 2 RNA [facility] This lab was ordered by [facility] and rep orted by [facility]. Procedure Social History Code Duration Value Status Description Data Source(s ) Smoking 03/17/2020 12:00:00 AM EST Patient is a former smoker completed Patient is a former smoker [facility] ([facility]) Smoking 10/11/2019 12:00:00 AM EDT Former Smoker completed Former Smoker eCW1 ([facility]) Smoking 10/11/2019 12:00:00 AM EDT Former Smoker completed Former Smoker eCW1 ([facility]) Smoking 10/11/2019 12:00:00 AM EDT Former Smoker completed Former Smoker eCW1 ([facility]) Smoking 10/11/2019 12:00:00 AM EDT Former Smoker completed Former Smoker eCW1 ([facility]) Vital Signs ID Date Data Source UNK Name Value Range Interpretation Code Description Data Source(s) Body surface area Derived from formula 2.19 m2 2.19 m2 [facility] ([facility]) Body weight 101.153 kg 101.153 kg [facility] ([facility]) [place] body weight 166 [lb_av] 166 [lb_av] [facility] Body mass index (BMI) [Ratio] 32.0 kg/m2 32.0 k g/m2 [facility] ([facility]) Body weight 223.00 [lb_av] 223.00 [lb_av] [facility] Body height 70 [in_i] 70 [in_i] [facility] ([facility]) 5'10" Body temperature 97.9 [degF] 97.9 [degF] [facility] ([facility], ) Oxygen saturation in Arterial blood by Pulse oximetry 95 % 95 % [facility] ([facility], ) Heart rate 78 /min 78 /min [facility] ([facility], ) Diastolic blood pressure 80 mm[Hg] 80 mm[Hg] [facility] ([facility], ) Systolic blood pressure 118 mm[Hg] 118 mm[Hg] M EDENT ([facility], ) Diastolic blood pressure 86 mm[Hg] 86 mm[Hg] eCW1 ([facility]) Systolic blood pressure 125 mm[Hg] 125 mm[Hg] e CW1 ([facility]) Body temperature 98.6 [degF] 98.6 [degF] eCW1 ( [facility]) Respiratory rate 18 /min 18 /min eCW1 ([facility]) Heart rate 78 /min 78 /min eCW1 ([facility]) Body mass index (BMI) [Ratio] 30.68 kg/m2 30.68 kg/m2 eCW1 ([facility]) Body height 71 [in_i] 71 [in_i] [facility]CW[facility] Body weight 220 [lb_av] 220 [lb_av] eCW1 ([facility]) Patient Treatment Plan of Care Planned Activity Planned Date Details Description Data Source (s) Cyproheptadine hydrochloride 4 MG Oral Tablet 10/11/2019 12:00:00 A M EDT eCW1 ([facility]) Cyproheptadine hydrochloride 4 MG Oral Tablet 10/11/2019 12:00:00 A M EDT eCW1 ([facility]) Cyproheptadine hydrochloride 4 MG Oral Tablet 10/11/2019 12:00:00 A M EDT eCW1 ([facility]) Cyproheptadine hydrochloride 4 MG Oral Tablet 10/11/2019 12:00:00 A M EDT eCW1 ([facility]) Cyproheptadine hydrochloride 4 MG Oral Tablet 10/11/2019 12:00:00 A M EDT eCW1 ([facility]) Hydrochlorothiazide 12.5 MG Oral Capsule 08/12/2019 12:00:00 AM EDT eCW1 ([facility]) Hydrochlorothiazide 12.5 MG Oral Capsule 08/12/2019 12:00:00 AM EDT eCW1 ([facility]) Hydrochlorothiazide 12.5 MG Oral Capsule 08/12/2019 12:00:00 AM EDT eCW1 ([facility]) Losartan Potassium 50 MG Oral Tablet 08/12/2019 12:00:00 AM EDT eCW1 ([facility]) Hydrochlorothiazide 12.5 MG Oral Capsule 08/12/2019 12:00:00 AM EDT eCW1 ([facility]) Losartan Potassium 50 MG Oral Tablet 08/12/2019 12:00:00 AM EDT eCW1 ([facility]) Hydrochlorothiazide 12.5 MG Oral Capsule 08/12/2019 12:00:00 AM EDT eCW1 ([facility]) Losartan Potassium 50 MG Oral Tablet 08/12/2019 12:00:00 AM EDT eCW1 ([facility]) Hydrochlorothiazide 12.5 MG Oral Capsule 08/12/2019 12:00:00 AM EDT eCW1 ([facility])
[2020-06-09] MEDS ORDERED: LORazepam 2 MG/ML VIAL IV STA (15:17)
[2020-06-09 15:34] LABS: CK-MB VALUE MASS 5.1 NG/ML (<3.6); CPK CREATINE PHOSPHOKINASE 276 U/L (39-308); MB/CK RELATIVE INDEX 1.85 (< OR =4); NT-PRO BNP 279 PG/ML (<450); TROPONIN I < 0.02 NG/ML (< 0.10)
--- NOTE | 2020-06-09 15:58 | REP ---
INDICATION: SOB. COMPARISON: Comparison chest x-ray is from 21 January 2008. TECHNIQUE: Two views.. FINDINGS: The right hemidiaphragm is quite elevated, more so than on the 2008 prior study. There are air-filled bowel loops under the elevated right hemidiaphragm. 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 There is platelike atelectasis in the right base above the elevated diaphragm. The lung becerra are otherwise clear. There is no evidence of pleural effusion. There are degenerative changes in the thoracic spine. The heart is not felt to be enlarged. Pulmonary vasculature is not increased. IMPRESSION: Elevated right hemidiaphragm with platelike atelectasis in the right base. Azygos lobe noted incidentally. Otherwise no acute disease.. <Electronically signed by Joe Seymour > 06/09/20 [id number]
[2020-06-09 19:03] LABS: CK-MB VALUE MASS 4.4 NG/ML (<3.6); CPK CREATINE PHOSPHOKINASE 294 U/L (39-308); TROPONIN I < 0.02 NG/ML (< 0.10)
[2020-06-09 19:17] VITALS: BP 154/94
--- NOTE | 2020-06-09 19:48 | ECGEPIP ---
[facility] - ED Test Date: 2020-06-09 Pat Name: DEIDRE LOPES Department: Room: - Gender: Male Mirror Framer: : 1940 Requested By: Kenia Smith Order Number: [id number] Reading MD: Cm Bhagat Measurements Intervals [place] Rate: 84 P: 34 MN: 156 QRS: -21 QRSD: 80 T: 13 QT: 382 QTc: 451 Interpretive Statements Sinus rhythm with premature supraventricular complexes NO PRIORS FOR COMPARISON Electronically Signed on 06-09-2020 19:48:03 EST by Cm Bhagat
--- NOTE | 2020-06-09 19:54 | ECGEPIP ---
[facility] - ED Test Date: 2020-06-09 Pat Name: DEIDRE LOPES Department: Room: - Gender: Male Visual Coordinator: : 1940 Requested By: Jacquelin Hua Order Number: [id number] Reading MD: Cm Bhagat Measurements Intervals [place] Rate: 82 P: 95 MT: 186 QRS: -29 QRSD: 80 T: 8 QT: 368 QTc: 429 Interpretive Statements Sinus rhythm with occasional premature ventricular complexes SIMILAR TO PRIOR ON SAME DATE Electronically Signed on 06-09-2020 19:53:47 EST by Cm Bhagat
== END 2020-06-09 19:18 | disposition home or self-care (01) ==
LOC: M ED 13:35
DX: F41.0 Panic disorder [episodic paroxysmal anxiety] (principal); I10 Essential (primary) hypertension; G47.33 Obstructive sleep apnea (adult) (pediatric); Z88.8 Allergy status to other drugs, medicaments and biological substances; Z87.891 Personal history of nicotine dependence; Z79.82 Long term (current) use of aspirin; Z79.899 Other long term (current) drug therapy
CPT/HCPCS: 71046; 82550; 82553; 82803; 83880; 84484; 85025; 93005; 96374; 99284; J2060

== ENCOUNTER → 2020-09-17 | Outpatient (CLI) | payer MEDICARE, BC ==
[~2020-09-17] MED LIST changes: +HYDR12CA; +LOSA50TA88
--- NOTE | 2020-09-17 08:26 | REP ---
INDICATION: I10,ESSENTIAL HYPERTENSION COMPARISON: 05/30/2020 TECHNIQUE: PA and lateral. FINDINGS: The mediastinum and cardiac silhouette are stable. Stable elevation to the right hemidiaphragm with interposed bowel gas (Chilaiditi syndrome) again noted. Small linear scarring at the left base and presumed linear scarring at the right base. No acute consolidation, obvious effusion, or pneumothorax. Skeletal structures intact. IMPRESSION: Stable chronic findings. No acute consolidation or effusion. <Electronically signed by Collin Garrison > 09/17/20 [id number]
== END ==
LOC: M CLY 07:56
PROVIDERS: ATTEND Family Medicine
DX: I10 Essential (primary) hypertension (principal); E78.00 Pure hypercholesterolemia, unspecified; R06.00 Dyspnea, unspecified
CPT/HCPCS: 71046; 80053; 80061; 84443; 85027; G0463

== ENCOUNTER → 2020-09-17 | Outpatient (REF) | payer MEDICARE, OTHER ==
[2020-09-17 11:28] LABS: HEMATOCRIT 52.2 % (42.0-52.0); HEMOGLOBIN 17.1 g/dl (13.5-17.5); MEAN CORPUSCULAR HEMOGLOBIN 30.8 pg (27.0-33.0); MEAN CORPUSCULAR HGB CONC 32.8 g/dl (32.0-36.5); MEAN CORPUSCULAR VOLUME 93.9 fl (80.0-96.0); PLATELET COUNT, AUTOMATED 227 10^3/uL (150-450); RED BLOOD COUNT 5.56 10^6/uL (4.30-6.10); WHITE BLOOD COUNT 7.5 10^3/uL (4.0-10.0)
[2020-09-17 12:19] LABS: ALBUMIN 3.7 GM/DL (3.2-5.2); BILIRUBIN,TOTAL 0.7 MG/DL (0.2-1.0); CALCIUM LEVEL 9.4 MG/DL (8.8-10.2); CHOLESTEROL RISK RATIO 2.305 (<5); CREATININE FOR GFR 1.62 MG/DL (0.70-1.30); GLOMERULAR FILTRATION RATE 44.1 (>42); POTASSIUM SERUM 4.9 MEQ/L (3.5-5.1); THYROID STIMULATING HORMONE 1.82 uIU/ML (0.358-3.740)
== END ==
LOC: M SFHCCLAY 07:44
PROVIDERS: ATTEND Family Medicine
DX: E78.00 Pure hypercholesterolemia, unspecified (principal); I10 Essential (primary) hypertension; R06.00 Dyspnea, unspecified

== ENCOUNTER → 2020-09-26 | Outpatient (CLI) | payer MEDICARE, BC, OTHER | LOC: M LABSMTC 10:06 | PROVIDERS: ATTEND Anesthesiology | DX: Z01.812 Encounter for preprocedural laboratory examination (principal); Z20.822 Contact with and (suspected) exposure to COVID-19 ==

== ENCOUNTER 2020-10-01 07:22 | Day surgery (SDC) | payer MEDICARE, BC, OTHER ==
[~2020-10-01] VITALS: Ht 180.3 cm; Wt 99.8 kg
[~2020-10-01 07:22] MED LIST changes: +NS 1,000 ML IV ONE
[2020-10-01] MEDS ORDERED: propofoL 200 MG/20 ML VIAL As Ordered ONE (08:37)
[2020-10-01] MEDS ORDERED: LIDOCAINE 2% 100MG/5ML SDV (FOR ANES.) As Ordered ONE (08:37)
--- NOTE | 2020-10-01 09:18 | ROOR ---
Patient Name: Magdiel Mar Procedure Date: 10/01/2020 8:45 AM Date of : 1940 Age: 80 Room: [facility] Gender: Male Note Status: Finalized Procedure: Colonoscopy Indications: High risk colon cancer surveillance: Personal history of colonic polyps, Last colonoscopy: May 2017 Providers: Tyrone Merrill MD Referring MD: Fili Vega MD Requesting Provider: Medicines: Monitored Anesthesia Care Complications: No immediate complications. Procedure: Pre-Anesthesia Assessment: - The heart rate, respiratory rate, oxygen saturations, blood pressure, adequacy of pulmonary ventilation, and response to care were monitored throughout the procedure. The Colonoscope was introduced through the anus and advanced to the terminal ileum, with identification of the appendiceal orifice and IC valve. The colonoscopy was performed without difficulty. The patient tolerated the procedure well. The quality of the bowel preparation was good. Findings: The perianal and digital rectal examinations were normal. Mild sigmoid diverticulosis and small internal hemorrhoids. The entire examined colon appeared normal on direct and retroflexion views. Impression: - Mild sigmoid diverticulosis and small internal hemorrhoids. - The entire examined colon is normal on direct and retroflexion views. - No specimens collected. Recommendation: - Repeat colonoscopy in 5 years for surveillance. - (dep on health status in 5 yrs) Procedure Code(s): --- Professional --- 23654, Colonoscopy, flexible; diagnostic, including collection of specimen(s) by brushing or washing, when performed (separate procedure) Diagnosis Code(s): --- Professional --- Z86.010, Personal history of colonic polyps CPT copyright 2019 [employer]. All rights reserved. The codes documented in this report are preliminary and upon tube cutter operator review may be revised to meet current compliance requirements. Tyrone Merrill MD Tyrone Merrill MD 10/01/2020 9:18:08 AM Electronically signed by Tyrone Merrill MD Number of Addenda: 0 Note Initiated On: 10/01/2020 8:45 AM Estimated Blood Loss: Estimated blood loss: none.
[2020-10-01 09:40] VITALS: BP 133/83
== END 2020-10-01 09:42 | disposition home or self-care (01) ==
LOC: M OPP 07:22
PROVIDERS: ATTEND Internal Medicine Gastroenterology
DX: Z12.11 Encounter for screening for malignant neoplasm of colon (principal); Z86.010 Personal history of colon polyps; K57.30 Diverticulosis of large intestine without perforation or abscess without bleeding; K64.8 Other hemorrhoids; Z79.82 Long term (current) use of aspirin; Z79.899 Other long term (current) drug therapy; Z88.8 Allergy status to other drugs, medicaments and biological substances; Z85.118 Personal history of other malignant neoplasm of bronchus and lung; Z92.21 Personal history of antineoplastic chemotherapy

== ENCOUNTER → 2021-03-16 | Outpatient (REF) | payer MEDICARE, OTHER ==
[~2021-03-16] MED LIST changes: -NS 1,000 ML IV ONE
[2021-03-16 11:57] LABS: CALCIUM LEVEL 9.3 MG/DL (8.8-10.2); CREATININE FOR GFR 1.3 MG/DL (0.70-1.30); GLOMERULAR FILTRATION RATE 56.8 (>42); POTASSIUM SERUM 4.2 MEQ/L (3.5-5.1)
== END ==
LOC: M SFHCCLAY 07:36
PROVIDERS: ATTEND Family Medicine
DX: I10 Essential (primary) hypertension (principal)
CPT/HCPCS: 80048; G0463

== ENCOUNTER → 2022-03-22 | Outpatient (REF) | payer MEDICARE, OTHER ==
[~2022-03-22] MED LIST changes: +LOSA50TA28; -LOSA50TA88
[2022-03-22 12:59] LABS: HEMATOCRIT 41.9 % (42.0-52.0); HEMOGLOBIN 14.1 g/dl (13.5-17.5); MEAN CORPUSCULAR HEMOGLOBIN 31.9 pg (27.0-33.0); MEAN CORPUSCULAR HGB CONC 33.7 g/dl (32.0-36.5); MEAN CORPUSCULAR VOLUME 94.8 fl (80.0-96.0); PLATELET COUNT, AUTOMATED 243 10^3/uL (150-450); RED BLOOD COUNT 4.42 10^6/uL (4.30-6.10); WHITE BLOOD COUNT 6.5 10^3/uL (4.0-10.0)
[2022-03-22 13:21] LABS: HEMOGLOBIN A1c 5.6 % (4.0-6.0)
[2022-03-22 14:04] LABS: BILIRUBIN,TOTAL 0.6 MG/DL (0.3-1.2); THYROID STIMULATING HORMONE 2.349 uIU/ML (0.55-4.78)
[2022-03-22 14:05] LABS: CALCIUM LEVEL 9.6 MG/DL (8.3-10.6); FREE T4 1.1 NG/DL (0.89-1.76)
[2022-03-22 14:06] LABS: TOTAL PROTEIN 7.2 G/DL (5.7-8.2)
[2022-03-22 14:07] LABS: CHOLESTEROL RISK RATIO 2.81 (<5); CREATININE FOR GFR 1.28 MG/DL (0.70-1.30); GLOMERULAR FILTRATION RATE 57.7 (>42); HDL CHOLESTEROL 69.6 MG/DL (>40); LDL CHOLESTEROL 96.2 MG/DL (<100)
== END ==
LOC: M SFHCCLAY 09:04
PROVIDERS: ATTEND Family Medicine
DX: R06.00 Dyspnea, unspecified (principal); I10 Essential (primary) hypertension; F41.9 Anxiety disorder, unspecified; G47.33 Obstructive sleep apnea (adult) (pediatric); Z28.21 Immunization not carried out because of patient refusal; R73.01 Impaired fasting glucose

== ENCOUNTER → 2022-04-01 | Outpatient (CLI) | payer MEDICARE, BC, OTHER | LOC: M CARPUL 10:07 | PROVIDERS: ATTEND Family Medicine | DX: I35.8 Other nonrheumatic aortic valve disorders (principal); I45.19 Other right bundle-branch block; I50.30 Unspecified diastolic (congestive) heart failure; I27.20 Pulmonary hypertension, unspecified ==

== ENCOUNTER → 2022-05-23 | Outpatient (REF) | payer MEDICARE, OTHER ==
[2022-05-23 11:39] LABS: BASO # 0.1 10^3/uL (0.0-0.2); BASO % 0.4 % (0.0-1.0); EOS # 0.1 10^3/uL (0.0-0.5); EOS % 0.7 % (0.0-3.0); HEMATOCRIT 44.2 % (42.0-52.0); HEMOGLOBIN 14.4 g/dl (13.5-17.5); LYMPH # 3.8 10^3/uL (1.5-5.0); LYMPH % 30.7 % (24.0-44.0); MEAN CORPUSCULAR HEMOGLOBIN 30.8 pg (27.0-33.0); MEAN CORPUSCULAR HGB CONC 32.6 g/dl (32.0-36.5); MEAN CORPUSCULAR VOLUME 94.6 fl (80.0-96.0); MONO # 0.9 10^3/uL (0.0-0.8); MONO % 7.2 % (2.0-8.0); NEUTROPHILS # 7.4 10^3/uL (1.5-8.5); NEUTROPHILS % 60.4 % (36.0-66.0); PLATELET COUNT, AUTOMATED 415 10^3/uL (150-450); RED BLOOD COUNT 4.67 10^6/uL (4.30-6.10); WHITE BLOOD COUNT 12.2 10^3/uL (4.0-10.0)
[2022-05-23 11:49] LABS: ALBUMIN 3.7 G/DL (3.2-5.2); BILIRUBIN,TOTAL 0.4 MG/DL (0.3-1.2); CALCIUM LEVEL 9.5 MG/DL (8.3-10.6); CREATININE FOR GFR 1.34 MG/DL (0.70-1.30); GLOMERULAR FILTRATION RATE 54.7 (>42); POTASSIUM SERUM 4.3 MMOL/L (3.5-5.1); TOTAL PROTEIN 7.3 G/DL (5.7-8.2)
== END ==
LOC: M SFHCCLAY 08:12
PROVIDERS: ATTEND Family Medicine
DX: I70.0 Atherosclerosis of aorta (principal); N52.9 Male erectile dysfunction, unspecified; F41.9 Anxiety disorder, unspecified; I10 Essential (primary) hypertension

== ENCOUNTER → 2022-05-27 | Outpatient (REF) | payer MEDICARE, OTHER ==
[2022-05-27 17:01] LABS: BASO # 0.1 10^3/uL (0.0-0.2); BASO % 0.5 % (0.0-1.0); EOS # 0.1 10^3/uL (0.0-0.5); EOS % 0.4 % (0.0-3.0); HEMATOCRIT 44.6 % (42.0-52.0); HEMOGLOBIN 14.7 g/dl (13.5-17.5); LYMPH # 3.4 10^3/uL (1.5-5.0); LYMPH % 28.4 % (24.0-44.0); MEAN CORPUSCULAR HEMOGLOBIN 30.6 pg (27.0-33.0); MEAN CORPUSCULAR VOLUME 92.9 fl (80.0-96.0); MONO # 1.2 10^3/uL (0.0-0.8); MONO % 9.6 % (2.0-8.0); NEUTROPHILS # 7.2 10^3/uL (1.5-8.5); NEUTROPHILS % 60.6 % (36.0-66.0); PLATELET COUNT, AUTOMATED 423 10^3/uL (150-450)
== END ==
LOC: M SFHCCLAY 12:03
PROVIDERS: ATTEND Family Medicine
DX: D72.829 Elevated white blood cell count, unspecified (principal)

== ENCOUNTER → 2022-07-05 | Outpatient (CLI) | payer MEDICARE, BC, OTHER | LOC: M RAD 13:49 | PROVIDERS: ATTEND Surgery Vascular Surgery | DX: I73.9 Peripheral vascular disease, unspecified (principal) ==

== ENCOUNTER → 2022-08-09 | Outpatient (CLI) | payer MEDICARE, BC, OTHER | LOC: M SOG 08:38 | PROVIDERS: ATTEND Orthopaedic Surgery | DX: M25.562 Pain in left knee (principal); M25.561 Pain in right knee ==

== ENCOUNTER → 2022-10-12 | Outpatient (CLI) | payer MEDICARE, BC, OTHER | LOC: M SOG 13:50 | PROVIDERS: ATTEND Orthopaedic Surgery | DX: R20.2 Paresthesia of skin (principal); M51.34 Other intervertebral disc degeneration, thoracic region; M51.36 Other intervertebral disc degeneration, lumbar region ==

== ENCOUNTER → 2023-09-15 | Outpatient (REF) | payer MEDICARE, BC ==
[2023-09-15 18:02] LABS: BASO % 0.5 % (0.0-1.0); EOS # 0.1 10^3/uL (0.0-0.5); EOS % 0.8 % (0.0-3.0); HEMATOCRIT 45.9 % (42.0-52.0); HEMOGLOBIN 15.3 g/dl (13.5-17.5); LYMPH # 3.2 10^3/uL (1.5-5.0); MEAN CORPUSCULAR HEMOGLOBIN 30.5 pg (27.0-33.0); MEAN CORPUSCULAR HGB CONC 33.3 g/dl (32.0-36.5); MEAN CORPUSCULAR VOLUME 91.6 fl (80.0-96.0); MONO # 0.6 10^3/uL (0.0-0.8); MONO % 6.7 % (2.0-8.0); NEUTROPHILS # 4.7 10^3/uL (1.5-8.5); NEUTROPHILS % 54.9 % (36.0-66.0); PLATELET COUNT, AUTOMATED 280 10^3/uL (150-450); RED BLOOD COUNT 5.01 10^6/uL (4.30-6.10); WHITE BLOOD COUNT 8.5 10^3/uL (4.0-10.0)
[2023-09-15 18:15] LABS: HEMOGLOBIN A1c 6.1 % (4.0-6.0)
[2023-09-15 18:41] LABS: ALKALINE PHOSPHATASE 92 U/L (46-116); ALT/SGPT 25 U/L (7.0-40); AST/SGOT 19 U/L (<34); BILIRUBIN,TOTAL 0.7 MG/DL (0.3-1.2); BLOOD UREA NITROGEN 24 MG/DL (9-23); CALCIUM LEVEL 9.8 MG/DL (8.3-10.6); CARBON DIOXIDE LEVEL 30 MMOL/L (20-31); CHLORIDE LEVEL 105 MMOL/L (98-107); CREATININE FOR GFR 1.28 MG/DL (0.70-1.30); GLOMERULAR FILTRATION RATE 57.6 (>35); GLUCOSE, FASTING 117 MG/DL (74-106); POTASSIUM SERUM 5.1 MMOL/L (3.5-5.1); SODIUM LEVEL 141 MMOL/L (136-145); TOTAL PROTEIN 7.4 G/DL (5.7-8.2)
[2023-09-15 18:45] LABS: FREE T4 1.13 NG/DL (0.89-1.76)
[2023-09-15 18:46] LABS: THYROID STIMULATING HORMONE 1.777 uIU/ML (0.55-4.78)
[2023-09-15 18:48] LABS: VITAMIN B12 LEVEL 692 PG/ML (211-911)
[2023-09-15 18:49] LABS: FOLATE > 24.00 NG/ML (>5.4)
== END ==
LOC: M SFHCCLAY 10:28
PROVIDERS: ATTEND Family Medicine
DX: I70.0 Atherosclerosis of aorta (principal); N52.9 Male erectile dysfunction, unspecified; F41.9 Anxiety disorder, unspecified; I10 Essential (primary) hypertension; D72.829 Elevated white blood cell count, unspecified; G47.33 Obstructive sleep apnea (adult) (pediatric); R06.00 Dyspnea, unspecified; Z28.21 Immunization not carried out because of patient refusal; R73.01 Impaired fasting glucose; G62.9 Polyneuropathy, unspecified

== ENCOUNTER → 2024-03-15 | Outpatient (REF) | payer MEDICARE, BC ==
[2024-03-15 17:34] LABS: BLOOD UREA NITROGEN 22 MG/DL (9-23); CARBON DIOXIDE LEVEL 30 MMOL/L (20-31); CHLORIDE LEVEL 103 MMOL/L (98-107); CREATININE FOR GFR 1.22 MG/DL (0.70-1.30); GLOMERULAR FILTRATION RATE > 60.0 (>35); GLUCOSE, FASTING 120 MG/DL (74-106); POTASSIUM SERUM 4.8 MMOL/L (3.5-5.1); SODIUM LEVEL 140 MMOL/L (136-145)
== END ==
LOC: M SFHCCLAY 10:55
PROVIDERS: ATTEND Family Medicine
DX: I10 Essential (primary) hypertension (principal); Z79.899 Other long term (current) drug therapy

== ENCOUNTER → 2024-09-12 | Outpatient (REF) | payer MEDICARE, BC ==
[2024-09-12 12:31] LABS: ALBUMIN 3.9 G/DL (3.2-5.2); BILIRUBIN,TOTAL 0.6 MG/DL (0.3-1.2); CALCIUM LEVEL 9.4 MG/DL (8.3-10.6); CHOLESTEROL RISK RATIO 2.79 (<5); CREATININE FOR GFR 1.3 MG/DL (0.70-1.30); GLOMERULAR FILTRATION RATE 55.2 (>35); LDL CHOLESTEROL 104.2 MG/DL (<100); TOTAL PROTEIN 7.4 G/DL (5.7-8.2)
== END ==
LOC: M SFHCCLAY 08:26
PROVIDERS: ATTEND Physician Assistant
DX: Z00.00 Encounter for general adult medical examination without abnormal findings (principal); I10 Essential (primary) hypertension; I48.0 Paroxysmal atrial fibrillation; I77.810 Thoracic aortic ectasia; E78.00 Pure hypercholesterolemia, unspecified; R73.01 Impaired fasting glucose; F41.9 Anxiety disorder, unspecified; N52.9 Male erectile dysfunction, unspecified; G47.33 Obstructive sleep apnea (adult) (pediatric); M25.561 Pain in right knee; M25.562 Pain in left knee

== ENCOUNTER → 2024-09-12 | Outpatient (CLI) | payer MEDICARE, BC | LOC: M CLY 13:32 | PROVIDERS: ATTEND Physician Assistant | DX: M25.561 Pain in right knee (principal); M25.562 Pain in left knee ==